=== PATIENT | male | born 1940 | race Caucasian/White ===

== ENCOUNTER 2018-05-06 10:54 | Emergency (ER) | payer OTHER, MEDICARE ==
[2018-05-06] MEDS ORDERED: FENTANYL CITR 100 MCG/2 ML ONE (12:23)
[2018-05-06] MEDS ORDERED: NA CHLORIDE 0.9% 1,000 ML ONE (12:23)
[2018-05-06 12:28] LABS: Absolute Lymphocytes (CBC) 0.5 K/uL (0.7-4.9); Absolute Monocytes 0.4 K/uL (0.1-1.3); Absolute Neutrophil 15.9 K/uL (1.8-8.0); Basophils % 0.3 % (0-1.3); Eosinophils % 0.3 % (0-4.4); Hematocrit 46.9 % (39.6-49.0); Lymphocytes % 2.9 % (15.3-44.8); MPV 8.9 fL (7.6-11.3); Monocytes % 2.5 % (3.3-12.3); RBC Red Blood Cell Count 5.07 M/uL (4.33-5.43)
[2018-05-06 12:38] LABS: Albumin 2.8 g/dL (3.4-5.0); Bilirubin Direct 0.6 mg/dL (0-0.2); Bilirubin Total 1.3 mg/dL (0.2-1.0); Protein, Total 7.6 g/dL (6.4-8.2)
[2018-05-06 12:39] LABS: Potassium 2.9 mmol/L (3.5-5.1)
[2018-05-06 12:52] LABS: Platelet Estimate ADEQ
[2018-05-06 12:53] LABS: Blood Morphology Comment NOT SEEN (NOT SEEN)
--- NOTE | 2018-05-06 12:57 | RAD REPORT ---
EXAM DESCRIPTION: CT - Stone Protocol - 05/06/2018 12:23 pm CLINICAL HISTORY: Abdominal pain. Hematuria COMPARISON: None. TECHNIQUE: Computed axial tomography of the abdomen pelvis was obtained without oral or IV contrast. Lack of IV and oral contrast limits evaluation of solid organs, bowel, and vessels. Coronal reformat joe images were obtained and reviewed. All CT scans are performed using dose optimization technique as appropriate and may include automated exposure control or mA/KV adjustment according to patient size. FINDINGS: A renal calculus is not seen. An ureteral calculus is not noted. A bladder calculus is not present. Several low-density left renal masses are nonspecific without IV contrast. It may represent cysts. The bladder wall is thickened. Arterial calcifications are present. An aorto bi femoral graft has been placed Small hepatic cysts suspected Spleen, pancreas and adrenals appear grossly normal There is no evidence of diverticulitis. The appendix appears normal Postsurgical changes of a prostatectomy with lymph node dissection. Small inguinal hernias contain fat. Postsurgical changes involve the lumbar spine. A neurostimulator device in place IMPRESSION: Negative for a genitourinary calculus Bladder wall thickening may indicate cystitis
[2018-05-06] MEDS ORDERED: POTASSIUM 25 MEQ EFFERV TAB ONE (14:31)
[2018-05-06] MEDS ORDERED: CEFTRIAXONE/SWI 1gm 1 GM/10 ML SYR ONE (14:31)
[2018-05-06 15:49] LABS: Urine Bacteria >50 /HPF (NONE SEEN); Urine Culture Reflex Order REFLEXED; Urine RBC <5 /HPF (NONE SEEN)
--- NOTE | 2018-05-06 16:05 | ER ---
Nurse's Notes [facility] Name: Ketan White Age: 77 yrs Sex: Male : 1940 Arrival Date: 05/06/2018 Time: 10:57 Bed 4 Private MD: None, None Diagnosis: Acute tubulo-interstitial nephritis Presentation: 05/06 11:15 Presenting complaint: Patient states: I am having severe lower back pain for one week la1 and started with chills and fever on one week ago as well. Pt denies urinary sx. I also was having blood in my urine one week ago but it has stopped. Transition of care: patient was not received from another setting of care. Onset of symptoms was May 06, 2018. Risk Assessment: Do you want to hurt yourself or someone else? Patient reports no desire to harm self or others. Initial Sepsis Screen: Does the patient meet any 2 criteria? No. Patient's initial sepsis screen is negative. Does the patient have a suspected source of infection? No. Patient's initial sepsis screen is negative. Care prior to arrival: None. 11:15 Method Of Arrival: Ambulatory la1 11:15 Acuity: ALICJA 3 la1 Historical: - Allergies: 11:14 NKDA; la1 - PMHx: 11:14 Hypertension; Hypothyroidism; Prostate Cancer; AAA (repaired 2013); CABG; la1 - Immunization history:: Adult Immunizations up to date. - Social history:: Smoking status: Patient uses tobacco products, smokes one-half pack cigarettes per day. - Ebola Screening: : No symptoms or risks identified at this time. Screenin:38 Abuse screen: Denies threats or abuse. Denies injuries from another. Nutritional ph screening: No deficits noted. Tuberculosis screening: No symptoms or risk factors identified. Fall Risk None identified. Assessment: 11:45 General: Appears in no apparent distress. comfortable, slender, well groomed, Behavior ph is calm, cooperative, appropriate for age, Reports chills for >3 days. Pain: Complains of pain in low back area Pain does not radiate. Pain currently is 3 out of 10 on a pain scale. Pain began approx 1 week ago. Neuro: Level of Consciousness is awake, alert, obeys commands, Oriented to person, place, time, situation. Cardiovascular: Capillary refill < 3 seconds in bilateral fingers Patient's skin is warm and dry. Respiratory: Airway is patent Respiratory effort is even, unlabored. GI: Abdomen is round non-distended, Bowel sounds present X 4 quads. Abd is soft and non tender X 4 quads. Reports nausea, Patient currently denies abdominal pain, diarrhea, vomiting. : Reports pain in bilateral in lower back also reports having an episode of hematuria approx 1 week ago Denies burning with urination, discharge, inability to void. Derm: Skin is intact, Skin is pink, warm \T\ dry. Musculoskeletal: Circulation, motion, and sensation intact. Range of motion: intact in all extremities. 13:00 Reassessment: Patient appears in no apparent distress at this time. Patient and/or ph family updated on plan of care and expected duration. Pain level reassessed. Patient is alert, oriented x 3, equal unlabored respirations, skin warm/dry/pink. Pt resting quietly, awaiting lab and radiology results. 14:35 Reassessment: Patient appears in no apparent distress at this time. Patient and/or ph family updated on plan of care and expected duration. Pain level reassessed. Patient is alert, oriented x 3, equal unlabored respirations, skin warm/dry/pink. Patient denies pain at this time. 15:45 Reassessment: Patient appears in no apparent distress at this time. Patient and/or ph family updated on plan of care and expected duration. Pain level reassessed. Patient is alert, oriented x 3, equal unlabored respirations, skin warm/dry/pink. Pt resting quietly, awaiting urine results, family at bedside Patient denies pain at this time. Patient states feeling better. Patient states symptoms have improved. Vital Signs: 11:16 Pulse 92; Resp 18; Temp 98.6(TE); Pulse Ox 98% on R/A; Weight 81.65 kg; Height 5 ft. 8 la1 in. (172.72 cm); 11:18 BP 126 / 71; la1 12:39 BP 112 / 65; Pulse 65; Resp 18; Pulse Ox 95% on R/A; ph 14:12 BP 114 / 67; Pulse 59; Resp 18; Pulse Ox 98% on R/A; ph 14:20 BP 137 / 58; Pulse 58; Resp 18; Pulse Ox 98% on R/A; ph 15:30 BP 141 / 68; Pulse 65; Resp 18; Pulse Ox 98% on R/A; ph 16:20 BP 122 / 64; Pulse 61; Resp 18; Temp 98.2; Pulse Ox 98% on R/A; ph 11:16 Body Mass Index 27.37 (81.65 kg, 172.72 cm) la1 ED Course: 10:57 Patient arrived in ED. dl4 10:57 None, None is Private Physician. dl4 11:15 Triage completed. la1 11:16 Arm band placed on left wrist. la1 11:21 Arvin Logan MD is Attending Physician. gs 11:21 Iliana Jackson, ILEANA is Primary Nurse. ph 12:09 Inserted saline lock: 20 gauge in left antecubital area, using aseptic technique. ph 12:[address] kw1 12:23 CT Stone Protocol In Process Unspecified. EDMS 12:39 Patient has correct armband on for positive identification. Placed in gown. Bed in low ph position. Call light in reach. Side rails up X 1. environmental monitoring technician on. Pulse ox on. NIBP on. Warm blanket given. 14:38 No provider procedures requiring assistance completed. ph 16:25 IV discontinued, intact, bleeding controlled, No redness/swelling at site. Pressure ph dressing applied. Administered Medications: 12:15 Drug: NS 0.9% 1000 ml Route: IV; Rate: 1 bolus; Site: left antecubital; ph 13:15 Follow up: IV Status: Completed infusion ph 12:15 Drug: fentaNYL (PF) 50 mcg Route: IVP; Site: left antecubital; ph 14:35 Follow up: Response: No adverse reaction; Pain is decreased ph 14:35 Drug: Rocephin - (cefTRIAXone) 1 grams Route: IVPB; Infused Over: 30 mins; Site: left ph antecubital; 15:01 Follow up: Response: No adverse reaction; IV Status: Completed infusion ph 14:35 Drug: Potassium Effervescent Tablet 50 mEq Route: PO; ph 15:01 Follow up: Response: No adverse reaction ph Outcome: 16:05 Discharge ordered by . gs 16:25 Discharged to home via wheelchair, with family. ph 16:25 Condition: improved 16:25 Discharge instructions given to patient, Instructed on discharge instructions, follow up and referral plans. medication usage, Demonstrated understanding of instructions, follow-up care, medications, Prescriptions given X 2. 16:25 Patient left the ED. ph Signatures: Dispatcher [employer] EDMS Camron Christina RN RN la1 Iliana Jackson RN RN ph Janusz Cohen RN RN hj Starr, Gregory, MD MD Kim Cortez kw1 Ketan Winter dl4 Corrections: (The following items were deleted from the chart) 11:16 11:15 Presenting complaint: Patient states: I am having severe lower back pain for one la1 week and started with chills and fever on one week ago as well. Pt denies urinary sx. la1 12:53 12:39 BP 160 / 82; Pulse 84bpm; Resp 22bpm; Pulse Ox 97% RA; ph ph 17:13 16:54 Patient left the ED. hj ph
--- NOTE | 2018-05-06 16:06 | EDPHYS ---
Physician Documentation [facility] Name: Ketan White Age: 77 yrs Sex: Male : 1940 Arrival Date: 05/06/2018 Time: 10:57 Bed 4 Private MD: None, None ED Physician Arvin Logan HPI: 05/06 16:27 This 77 yrs old Male presents to ER via Ambulatory with complaints of Low gs Back Pain, Urinary Problem. 16:27 The patient presents with pain that is acute. The symptoms are located in the low back. gs The pain does not radiate. Onset: The symptoms/episode began/occurred acutely, 1 week(s) ago. Modifying factors: The patient symptoms are alleviated by nothing, the patient symptoms are aggravated by any movement. Associated signs and symptoms: Pertinent positives: hematuria, Pertinent negatives: chest pain, constipation, incontinence, urinary retention, weakness. Severity of symptoms: At their worst the symptoms were moderate, in the emergency department the symptoms are unchanged. The patient has not experienced similar symptoms in the past. Historical: - Allergies: 11:14 NKDA; la1 - PMHx: 11:14 Hypertension; Hypothyroidism; Prostate Cancer; AAA (repaired 2013); CABG; la1 - Immunization history:: Adult Immunizations up to date. - Social history:: Smoking status: Patient uses tobacco products, smokes one-half pack cigarettes per day. - Ebola Screening: : No symptoms or risks identified at this time. ROS: 16:27 All other systems are negative. gs Exam: 16:27 Head/Face: Normocephalic, atraumatic. Eyes: Pupils equal round and reactive to light, gs extra-ocular motions intact. Lids and lashes normal. Conjunctiva and sclera are non-icteric and not injected. Cornea within normal limits. Periorbital areas with no swelling, redness, or edema. ENT: Nares patent. No nasal discharge, no septal abnormalities noted. Tympanic membranes are normal and external auditory canals are clear. Oropharynx with no redness, swelling, or masses, exudates, or evidence of obstruction, uvula midline. Mucous membranes moist. Neck: Trachea midline, no thyromegaly or masses palpated, and no cervical lymphadenopathy. Supple, full range of motion without nuchal rigidity, or vertebral point tenderness. No Meningismus. Chest/axilla: Normal chest wall appearance and motion. Nontender with no deformity. No lesions are appreciated. Cardiovascular: Regular rate and rhythm with a normal S1 and S2. No gallops, murmurs, or rubs. Normal PMI, no JVD. No pulse deficits. Respiratory: Lungs have equal breath sounds bilaterally, clear to auscultation and percussion. No rales, rhonchi or wheezes noted. No increased work of breathing, no retractions or nasal flaring. Abdomen/GI: Soft, non-tender, with normal bowel sounds. No distension or tympany. No guarding or rebound. No evidence of tenderness throughout. Skin: Warm, dry with normal turgor. Normal color with no rashes, no lesions, and no evidence of cellulitis. MS/ Extremity: Pulses equal, no cyanosis. Neurovascular intact. Full, normal range of motion. Neuro: Awake and alert, GCS 15, oriented to person, place, time, and situation. Cranial nerves II-XII grossly intact. Motor strength 5/5 in all extremities. Sensory grossly intact. Cerebellar exam normal. Normal gait. 16:27 Constitutional: The patient appears alert, awake. 16:27 Back: pain, that is mild, of the lumbar area, CVA tenderness, that is moderate, is noted on the left. Vital Signs: 11:16 Pulse 92; Resp 18; Temp 98.6(TE); Pulse Ox 98% on R/A; Weight 81.65 kg; Height 5 ft. 8 la1 in. (172.72 cm); 11:18 BP 126 / 71; la1 12:39 BP 112 / 65; Pulse 65; Resp 18; Pulse Ox 95% on R/A; ph 14:12 BP 114 / 67; Pulse 59; Resp 18; Pulse Ox 98% on R/A; ph 14:20 BP 137 / 58; Pulse 58; Resp 18; Pulse Ox 98% on R/A; ph 15:30 BP 141 / 68; Pulse 65; Resp 18; Pulse Ox 98% on R/A; ph 16:20 BP 122 / 64; Pulse 61; Resp 18; Temp 98.2; Pulse Ox 98% on R/A; ph 11:16 Body Mass Index 27.37 (81.65 kg, 172.72 cm) la1 MDM: 12:02 Patient medically screened. gs 16:27 Differential diagnosis: arthritis, strain, UTI. Data reviewed: vital signs, nurses gs notes, lab test result(s), radiologic studies. Counseling: I had a detailed discussion with the patient and/or guardian regarding: the historical points, exam findings, and any diagnostic results supporting the discharge/admit diagnosis, lab results, radiology results. Response to treatment: the patient's symptoms have markedly improved after treatment, and as a result, I will discharge patient. 05/06 12:03 Order name: Basic Metabolic Panel; Complete Time: 13:28 05/06 12:03 Order name: CBC with Diff; Complete Time: 13:28 05/06 12:03 Order name: Hepatic Function; Complete Time: 13:28 05/06 12:03 Order name: Lipase; Complete Time: 13:28 05/06 12:03 Order name: Urine Microscopic Only; Complete Time: 16:02 05/06 12:52 Order name: Manual Differential; Complete Time: 13:28 [facility] 05/06 12:03 Order name: CT Stone Protocol; Complete Time: 13:28 05/06 13:31 Order name: Blood Culture* 05/06 14:07 Order name: Magnesium; Complete Time: 15:17 05/06 15:02 Order name: Urine Dipstick--Ancillary (enter results) pa 05/06 15:51 Order name: Urine Culture [facility] 05/06 12:03 Order name: IV Saline Lock; Complete Time: 12:09 05/06 12:03 Order name: Labs collected and sent; Complete Time: 12:09 05/06 12:03 Order name: Urine Dipstick-Ancillary (obtain specimen); Complete Time: 15:01 Administered Medications: 12:15 Drug: NS 0.9% 1000 ml Route: IV; Rate: 1 bolus; Site: left antecubital; ph 13:15 Follow up: IV Status: Completed infusion ph 12:15 Drug: fentaNYL (PF) 50 mcg Route: IVP; Site: left antecubital; ph 14:35 Follow up: Response: No adverse reaction; Pain is decreased ph 14:35 Drug: Rocephin - (cefTRIAXone) 1 grams Route: IVPB; Infused Over: 30 mins; Site: left ph antecubital; 15:01 Follow up: Response: No adverse reaction; IV Status: Completed infusion ph 14:35 Drug: Potassium Effervescent Tablet 50 mEq Route: PO; ph 15:01 Follow up: Response: No adverse reaction ph Disposition: 05/06/18 16:05 Discharged to Home. Impression: Acute tubulo-interstitial nephritis. - Condition is Stable. - Discharge Instructions: Pyelonephritis, Adult. - Prescriptions for Keflex 500 mg Oral Capsule - take 1 capsule by ORAL route 3 times per day for 10 days; 30 capsule. Tylenol- Codeine #4 300-60 mg Oral Tablet - take 1 tablet by ORAL route every 8 hours As needed; 10 tablet. - Medication Reconciliation Form, Thank You Letter, Antibiotic Education, Prescription Opioid Use form. - Follow up: Private Physician; When: 2 - 3 days; Reason: Re-evaluation by your physician. Signatures: Dispatcher [employer] EDMS Camron Christina RN RN laIliana Salinas RN RN ph Janusz Cohen RN RN Arvin Villa MD MD Corrections: (The following items were deleted from the chart) 16:54 16:05 05/06/2018 16:05 Discharged to Home. Impression: Acute tubulo-interstitial hj nephritis. Condition is Stable. Forms are Medication Reconciliation Form, Thank You Letter, Antibiotic Education, Prescription Opioid Use. Follow up: Private Physician; When: 2 - 3 days; Reason: Re-evaluation by your physician. gs
[2018-05-06 16:36] LABS: Urine Blood TRACE (NEG); Urine Glucose NEGATIVE (NEG); Urine Protein NEGATIVE (NEG); Urine Specific Gravity 1.015 (1.005-1.030)
== END 2018-05-06 16:54 | disposition home or self-care (01) ==
LOC: ER 10:54
DX: N10 Acute pyelonephritis (principal); I10 Essential (primary) hypertension; F17.210 Nicotine dependence, cigarettes, uncomplicated; Z95.1 Presence of aortocoronary bypass graft; Z85.46 Personal history of malignant neoplasm of prostate
CPT/HCPCS: 36415; 74176; 76377; 80048; 80076; 83690; 83735; 85025; 87040 ×2; 87086; 87088; J0696; J3010; J7030; 81003; 81015; 87077; 87186; 87205; 96361; 96365; 96375; 99285

== ENCOUNTER 2019-04-14 09:35 | Emergency (ER) | payer OTHER, MEDICARE ==
[2019-04-14 10:53] LABS: Absolute Lymphocytes (CBC) 0.7 K/uL (0.7-4.9); Basophils % 0.3 % (0-1.3); Hematocrit 43.5 % (39.6-49.0); Lymphocytes % 5.8 % (15.3-44.8); MPV 7.8 fL (7.6-11.3); RBC Red Blood Cell Count 4.43 M/uL (4.33-5.43)
[2019-04-14 11:06] LABS: Urine Blood 2+ (NEG); Urine Glucose NEGATIVE (NEG); Urine Protein 2+ (NEG); Urine pH 5.5 (5.0-7.0)
[2019-04-14 11:07] LABS: Potassium 3.8 mmol/L (3.5-5.1)
[2019-04-14] MEDS ORDERED: CEFTRIAXONE/SWI 1gm 1 GM/10 ML SYR ONE (11:18)
--- NOTE | 2019-04-14 11:28 | ER ---
Nurse's Notes [facility] Name: Ketan White Age: 78 yrs Sex: Male : 1940 Arrival Date: 04/14/2019 Time: 09:37 Bed 24 Private MD: Diagnosis: Urinary tract infection, site not specified Presentation: 04/14 10:03 Presenting complaint: Patient states: Flank pain, chills, dysuria and urinary frequency aj1 since Monday night. Transition of care: patient was not received from another setting of care. Onset of symptoms was March 2019. Risk Assessment: Do you want to hurt yourself or someone else? Patient reports no desire to harm self or others. Initial Sepsis Screen: Does the patient meet any 2 criteria? No. Patient's initial sepsis screen is negative. Does the patient have a suspected source of infection? Yes: Dysuria/Frequency/Urgency/UTI. Care prior to arrival: None. 10:03 Method Of Arrival: Wheelchair aj1 10:03 Acuity: ALICJA 3 aj1 Triage Assessment: 10:07 General: Appears in no apparent distress. uncomfortable, Behavior is calm, cooperative, aj1 appropriate for age. Pain: Pain currently is 7 out of 10 on a pain scale. Historical: - Allergies: 10:07 NKDA; aj1 - Home Meds: 10:07 amlodipine 5 mg tab 1 tab once daily [Active]; aspirin 81 mg Oral TbEC 1 tab once daily aj1 [Active]; clopidogrel 75 mg Oral tab 1 tab once daily [Active]; CoQ-10 Oral daily [Active]; levothyroxine 50 mcg tab 1 tab once daily [Active]; lisinopril 40 mg Oral tab 1 tab once daily [Active]; Vitamin D Oral daily [Active]; Java-3 Oral daily [Active]; - PMHx: 10:07 AAA (repaired 2013); CABG; Hypertension; Hypothyroidism; Prostate Cancer; aj1 - Immunization history:: Flu vaccine is up to date. - Coronavirus screen:: The patient has NOT traveled to [place], [place], or [place] in the past 14 days. - Social history:: Smoking status: Patient reports the use of cigarette tobacco products, smokes one-half pack cigarettes per day. - Ebola Screening: : Patient denies travel to an Ebola-affected area in the 21 days before illness onset. Screenin:08 Abuse screen: Denies threats or abuse. Denies injuries from another. Nutritional aj1 screening: No deficits noted. Tuberculosis screening: No symptoms or risk factors identified. 12:14 Fall Risk None identified. aj1 Assessment: 10:08 General: Appears in no apparent distress. uncomfortable, Behavior is calm, cooperative, aj1 appropriate for age. Pain: Complains of pain in back Pain radiates to abdomen Pain currently is 7 out of 10 on a pain scale. at worst was 9 out of 10 on a pain scale. Neuro: Level of Consciousness is awake, alert, obeys commands, Oriented to person, place, time, situation. Cardiovascular: Patient's skin is warm and dry. Respiratory: Airway is patent Respiratory effort is even, unlabored, Respiratory pattern is regular, symmetrical. GI: Abdomen is non-distended. : Reports burning with urination, urgency, urinary frequency. EENT: No signs and/or symptoms were reported regarding the EENT system. Derm: No signs and/or symptoms reported regarding the dermatologic system. Skin is pink, warm \T\ dry. normal. Musculoskeletal: No signs and/or symptoms reported regarding the musculoskeletal system. Circulation, motion, and sensation intact. 11:12 Reassessment: Patient appears in no apparent distress at this time. No changes from aj1 previously documented assessment. Patient and/or family updated on plan of care and expected duration. Pain level reassessed. Patient is alert, oriented x 3, equal unlabored respirations, skin warm/dry/pink. 12:12 Reassessment: Patient appears in no apparent distress at this time. No changes from aj1 previously documented assessment. Patient and/or family updated on plan of care and expected duration. Pain level reassessed. Patient is alert, oriented x 3, equal unlabored respirations, skin warm/dry/pink. Vital Signs: 10:07 BP 128 / 77; Pulse 79; Resp 18; Temp 99.8; Pulse Ox 97% on R/A; Weight 79.38 kg (R); aj1 Height 5 ft. 8 in. (172.72 cm) (R); Pain 7/10; 11:12 BP 110 / 54; Pulse 70; Resp 18; Pulse Ox 97% on R/A; aj1 12:13 BP 118 / 54; Pulse 72; Resp 18; Pulse Ox 97% on R/A; aj1 10:07 Body Mass Index 26.61 (79.38 kg, 172.72 cm) aj1 ED Course: 09:37 Patient arrived in ED. as 09:41 Aren Caputo MD is Attending Physician. kdr 10:03 Karen Salmon RN is Primary Nurse. aj1 10:05 Triage completed. aj1 10:07 Arm band placed on Patient placed in an exam room. aj1 10:08 CT completed. Patient tolerated procedure well. Patient moved back from CT. mw3 10:08 Patient has correct armband on for positive identification. Bed in low position. Call aj light in reach. 10:08 No provider procedures requiring assistance completed. aj1 10:50 Initial lab(s) drawn, by me, sent to lab. Urine collected: clean catch specimen, jb1 cloudy, ananya colored. Inserted saline lock: 22 gauge in right antecubital area, using aseptic technique. Blood collected. 12:13 IV discontinued, intact, bleeding controlled, No redness/swelling at site. Pressure aj1 dressing applied. Administered Medications: 11:18 Drug: Rocephin - (cefTRIAXone) 1 grams Route: IVPB; Infused Over: 30 mins; Site: right aj1 antecubital; Outcome: 11:27 Discharge ordered by . kdr 12:14 Discharged to home via wheelchair, with family. aj1 12:14 Condition: good 12:14 Discharge instructions given to patient, Instructed on discharge instructions, follow up and referral plans. medication usage, Demonstrated understanding of instructions, follow-up care, medications, Prescriptions given X 2. 12:15 Patient left the ED. aj1 Addendum: 04/18/2019 07:20 Addendum: Culture Results: Positive urine culture. No further action required. Bacteria e b sensitive to prescribed antibiotic. Signatures: Tej Mahmood jb1 Karen Salmon, ILEANA RN aj1 Aren Caputo MD MD kdr Martinez, Amelia as Botello, Elizabeth eb Willis, Michelle mw3
--- NOTE | 2019-04-14 11:28 | EDPHYS ---
Physician Documentation [facility] Name: Ketan White Age: 78 yrs Sex: Male : 1940 Arrival Date: 04/14/2019 Time: 09:37 Bed 24 Private MD: ED Physician Aren Caputo HPI: 04/14 11:29 This 78 yrs old Male presents to ER via Wheelchair with complaints of Flank kdr Pain. 11:29 The patient complains of pain in the left mid back. The pain does not radiate. Onset: kdr The symptoms/episode began/occurred gradually, Monday night. Modifying factors: The symptoms are alleviated by nothing. the symptoms are aggravated by nothing. Associated signs and symptoms: Pertinent positives: fever, hematuria, nausea, subjective fever. Severity of pain: At its worst the pain was mild in the emergency department the pain is unchanged. The patient has experienced similar episodes in the past, with the last episode occurring 2 month(s) ago, today's symptoms are similar. The patient has not recently seen a physician. The patient states that he is having left flank pain and foul smelling urine with urgency and frequency since Monday. Historical: - Allergies: 10:07 NKDA; aj1 - Home Meds: 10:07 amlodipine 5 mg tab 1 tab once daily [Active]; aspirin 81 mg Oral TbEC 1 tab once daily aj1 [Active]; clopidogrel 75 mg Oral tab 1 tab once daily [Active]; CoQ-10 Oral daily [Active]; levothyroxine 50 mcg tab 1 tab once daily [Active]; lisinopril 40 mg Oral tab 1 tab once daily [Active]; Vitamin D Oral daily [Active]; Hye-3 Oral daily [Active]; - PMHx: 10:07 AAA (repaired 2013); CABG; Hypertension; Hypothyroidism; Prostate Cancer; aj1 - Immunization history:: Flu vaccine is up to date. - Coronavirus screen:: The patient has NOT traveled to [place], [place], or [place] in the past 14 days. - Social history:: Smoking status: Patient reports the use of cigarette tobacco products, smokes one-half pack cigarettes per day. - Ebola Screening: : Patient denies travel to an Ebola-affected area in the 21 days before illness onset. ROS: 11:29 Constitutional: Negative for objective fever, chills, and weight loss, Eyes: Negative kdr for injury, pain, redness, and discharge, ENT: Negative for injury, pain, and discharge, Neck: Negative for injury, pain, and swelling, Cardiovascular: Negative for chest pain, palpitations, and edema, Respiratory: Negative for shortness of breath, cough, wheezing, and pleuritic chest pain, Abdomen/GI: Negative for abdominal pain, nausea, vomiting, diarrhea, and constipation, MS/Extremity: Negative for injury and deformity, Skin: Negative for injury, rash, and discoloration, Neuro: Negative for headache, weakness, numbness, tingling, and seizure activity. Psych: Negative for depression, anxiety, suicide ideation, homicidal ideation, and hallucinations, Allergy/Immunology: Negative for hives, rash, and allergies, Endocrine: Negative for neck swelling, polydipsia, polyuria, polyphagia, and marked weight changes, Hematologic/Lymphatic: Negative for swollen nodes, abnormal bleeding, and unusual bruising. 11:29 Back: Positive for pain at rest, flank pain, on the left, of the left mid back, Negative for decreased range of motion. 11:29 : Positive for urinary symptoms, urinary frequency, small amounts, hematuria, foul smelling urine. Exam: 11:29 Constitutional: This is a well developed, well nourished patient who is awake, alert, kdr and in no acute distress. Head/Face: Normocephalic, atraumatic. Eyes: Pupils equal round and reactive to light, extra-ocular motions intact. Lids and lashes normal. Conjunctiva and sclera are non-icteric and not injected. Cornea within normal limits. Periorbital areas with no swelling, redness, or edema. Neck: Trachea midline, no thyromegaly or masses palpated, and no cervical lymphadenopathy. Supple, full range of motion without nuchal rigidity, or vertebral point tenderness. No Meningismus. Chest/axilla: Normal chest wall appearance and motion. Nontender with no deformity. No lesions are appreciated. Cardiovascular: Regular rate and rhythm with a normal S1 and S2. No gallops, murmurs, or rubs. Normal PMI, no JVD. No pulse deficits. Respiratory: Lungs have equal breath sounds bilaterally, clear to auscultation and percussion. No rales, rhonchi or wheezes noted. No increased work of breathing, no retractions or nasal flaring. Abdomen/GI: Soft, non-tender, with normal bowel sounds. No distension or tympany. No guarding or rebound. No evidence of tenderness throughout. Back: No spinal tenderness. No costovertebral tenderness. Full range of motion. Skin: Warm, dry with normal turgor. Normal color with no rashes, no lesions, and no evidence of cellulitis. MS/ Extremity: Pulses equal, no cyanosis. Neurovascular intact. Full, normal range of motion. Neuro: Awake and alert, GCS 15, oriented to person, place, time, and situation. Cranial nerves II-XII grossly intact. Motor strength 5/5 in all extremities. Sensory grossly intact. Cerebellar exam normal. Normal gait. Psych: Awake, alert, with orientation to person, place and time. Behavior, mood, and affect are within normal limits. Vital Signs: 10:07 BP 128 / 77; Pulse 79; Resp 18; Temp 99.8; Pulse Ox 97% on R/A; Weight 79.38 kg (R); aj1 Height 5 ft. 8 in. (172.72 cm) (R); Pain 7/10; 11:12 BP 110 / 54; Pulse 70; Resp 18; Pulse Ox 97% on R/A; aj1 12:13 BP 118 / 54; Pulse 72; Resp 18; Pulse Ox 97% on R/A; aj1 10:07 Body Mass Index 26.61 (79.38 kg, 172.72 cm) [facility] MDM: 11:27 Patient medically screened. [facility] 11:29 Data reviewed: vital signs, nurses notes, lab test result(s), radiologic studies. [facility] Counseling: I had a detailed discussion with the patient and/or guardian regarding: the historical points, exam findings, and any diagnostic results supporting the discharge/admit diagnosis, lab results, radiology results, the need for outpatient follow up. 04/14 10:25 Order name: Urine Culture [facility] 04/14 10:27 Order name: CBC with Diff; Complete Time: 11:20 [facility] 04/14 10:25 Order name: Urine Dipstick-Ancillary (obtain specimen); Complete Time: 10:48 [facility] 04/14 10:27 Order name: Chem 7; Complete Time: 11:20 [facility] 04/14 10:52 Order name: Urine Dipstick--Ancillary (enter results); Complete Time: 11:20 ms Administered Medications: 11:18 Drug: Rocephin - (cefTRIAXone) 1 grams Route: IVPB; Infused Over: 30 mins; Site: right aj1 antecubital; Disposition: 04/14/19 11:27 Discharged to Home. Impression: Urinary tract infection, site not specified. - Condition is Stable. - Discharge Instructions: Urinary Tract Infection, Adult, [id number]. - Prescriptions for Bactrim DS 800- 160 mg Oral Tablet - take 1 tablet by ORAL route every 12 hours for 10 days; 20 tablet. Tramadol 50 mg Oral Tablet - take 1 tablet by ORAL route every 8 hours as needed; 12 tablet. - Medication Reconciliation Form, Thank You Letter, Antibiotic Education form. - Follow up: Private Physician; When: 2 - 3 days; Reason: If symptoms return, Further diagnostic work-up, Recheck today's complaints, Continuance of care, Re-evaluation by your physician. - Problem is new. - Symptoms have improved. Signatures: Dispatcher [employer] EDKaren Souza RN RN aj1 Aren Caputo MD MD [facility] Corrections: (The following items were deleted from the chart) 12:15 11:27 04/14/2019 11:27 Discharged to Home. Impression: Urinary tract infection, site aj1 not specified. Condition is Stable. Forms are Medication Reconciliation Form, Thank You Letter, Antibiotic Education, Prescription Opioid Use. Follow up: Private Physician; When: 2 - 3 days; Reason: If symptoms return, Further diagnostic work-up, Recheck today's complaints, Continuance of care, Re-evaluation by your physician. Problem is new. Symptoms have improved. kdr
[2019-04-14 12:22] VITALS: TEMP 99.8; O2SAT 97
[2019-04-14 12:25] VITALS: BP 118/54
== END 2019-04-14 12:15 | disposition home or self-care (01) ==
LOC: ER 09:35
DX: N39.0 Urinary tract infection, site not specified (principal); E03.9 Hypothyroidism, unspecified; Z85.46 Personal history of malignant neoplasm of prostate; Z95.1 Presence of aortocoronary bypass graft; I10 Essential (primary) hypertension
CPT/HCPCS: 87088; 85025; 87086; 80048; 36415; 87077; 87186; 81003; 96374; 99284; J0696

== ENCOUNTER 2019-07-05 18:13 | Emergency (ER) | payer OTHER, MEDICARE ==
--- NOTE | 2019-07-05 19:16 | RAD REPORT ---
EXAM DESCRIPTION: CT - Stone Protocol - 07/05/2019 7:01 pm CLINICAL HISTORY: Abdominal pain. COMPARISON: 2018 TECHNIQUE: Computed axial tomography of the abdomen pelvis was obtained without oral or IV contrast. Lack of IV and oral contrast limits evaluation of solid organs, bowel, and vessels. Coronal reformat joe images were obtained and reviewed. All CT scans are performed using dose optimization technique as appropriate and may include automated exposure control or mA/KV adjustment according to patient size. FINDINGS: Chronic appearing interstitial opacities within the lungs. A 1 millimeter nonobstructing left renal calculus. No hydronephrosis small renal cysts suspected. . A n ureteral calculus is not noted. A bladder calculus is not present. Thickened bladder wall Arterial calcifications are present. An aorto bi femoral graft has been placed Small hepatic cysts Spleen, pancreas and adrenals appear grossly normal There is no evidence of diverticulitis. The appendix appears normal Postsurgical changes of a prostatectomy with lymph node dissection. Small inguinal hernias contain fat. Postsurgical changes involve the lumbar spine. neurostimulator device in place IMPRESSION: 1 millimeter nonobstructing left renal calculus Thickened bladder wall may indicate a cystitis
[2019-07-05] MEDS ORDERED: ACETAMINOPHEN 325 MG TABLET ONE (19:17)
[2019-07-05 19:18] LABS: Absolute Lymphocytes (CBC) 0.7 K/uL (0.7-4.9); Basophils % 0.7 % (0-1.3); Hematocrit 46.5 % (39.6-49.0); Lymphocytes % 6.2 % (15.3-44.8); MPV 7.8 fL (7.6-11.3); RBC Red Blood Cell Count 4.64 M/uL (4.33-5.43)
[2019-07-05] MEDS ORDERED: MORPHINE 2 MG/ML SYR ONE (19:18)
[2019-07-05] MEDS ORDERED: NA CHLORIDE 0.9% 500 ML ONE (19:18)
[2019-07-05 19:23] LABS: Albumin 3.2 g/dL (3.4-5.0); Bilirubin Direct 0.2 mg/dL (0-0.2); Bilirubin Total 0.7 mg/dL (0.2-1.0); Protein, Total 7.9 g/dL (6.4-8.2)
--- NOTE | 2019-07-05 20:45 | ER ---
Nurse's Notes [facility] Name: Ketan White Age: 78 yrs Sex: Male : 1940 Arrival Date: 07/05/2019 Time: 18:15 Bed 7 Private MD: Diagnosis: Urinary tract infection, site not specified Presentation: 07/04 18:21 Chief complaint: Patient states: I have a kidney infection, this is about the 3rd time ca1 this happened. It is the 2nd time this year. Reports low back pain, both sides but more on Left. Reports burning with urination, urinary frequency. Symptoms started 2-3 days ago. Denies cough. Coronavirus screen: Proceed with normal triage. Patient denies a cough. Patient denies shortness of breath or difficulty breathing. Patient reports a measured and/or subjective temperature greater than 100.4F. Patient denies travel on a cruise ship or to a country the [facility] currently lists as an affected area. Patient denies contact with known and/or suspected case of COVID-19. Ebola Screen: Patient negative for fever greater than or equal to 101.5 degrees Fahrenheit, and additional compatible Ebola Virus Disease symptoms Patient denies exposure to infectious person. Patient denies travel to an Ebola-affected area in the 21 days before illness onset. No symptoms or risks identified at this time. Initial Sepsis Screen: Does the patient meet any 2 criteria? No. Patient's initial sepsis screen is negative. Does the patient have a suspected source of infection? No. Patient's initial sepsis screen is negative. Risk Assessment: Do you want to hurt yourself or someone else? Patient reports no desire to harm self or others. Onset of symptoms was July 05, 2019. 18:21 Method Of Arrival: Wheelchair ca1 18:21 Acuity: ALICJA 3 ca1 Triage Assessment: 18:29 General: Appears in no apparent distress. comfortable, Behavior is cooperative, bp appropriate for age, anxious. Pain: Complains of pain in left flank. EENT: No deficits noted. Neuro: No deficits noted. Cardiovascular: No deficits noted. Respiratory: No deficits noted. GI: No signs and/or symptoms were reported involving the gastrointestinal system. : Reports burning with urination, pain in left flank(s). Derm: No deficits noted. Musculoskeletal: No deficits noted. Historical: - Allergies: 18:26 NKDA; ca1 - Home Meds: 18:26 amlodipine 5 mg tab 1 tab once daily [Active]; aspirin 81 mg Oral TbEC 1 tab once daily ca1 [Active]; clopidogrel 75 mg Oral tab 1 tab once daily [Active]; CoQ-10 Oral daily [Active]; levothyroxine 50 mcg tab 1 tab once daily [Active]; lisinopril 40 mg Oral tab 1 tab once daily [Active]; Holt-3 Oral daily [Active]; Vitamin D Oral daily [Active]; - PMHx: 18:26 AAA (repaired 2013); CABG; Hypertension; Hypothyroidism; Prostate Cancer; ca1 - Immunization history:: Adult Immunizations up to date, Pneumococcal vaccine is up to date, Flu vaccine is up to date. - Social history:: Smoking status: Patient reports the use of cigarette tobacco products, smokes one-half pack cigarettes per day. Screenin:30 Abuse screen: Denies threats or abuse. Denies injuries from another. Nutritional bp screening: No deficits noted. Tuberculosis screening: No symptoms or risk factors identified. Fall Risk None identified. Assessment: 18:30 General: SEE TRIAGE NOTE. bp 18:58 Reassessment: PT TO CT. bp 19:23 Reassessment: Patient is alert, oriented x 3, equal unlabored respirations, skin bb warm/dry/pink. IV site to R AC intact, patent, fluids infusing, pt returned from CT and awaiting results. 20:49 Reassessment: Patient is alert, oriented x 3, equal unlabored respirations, skin bb warm/dry/pink. awaiting results and disposition. 21:07 Reassessment: Patient is alert, oriented x 3, equal unlabored respirations, skin bb warm/dry/pink. pt verbalized understanding of and agrees to plan of care discharge instructions given pt assisted to exit via wheelchair accompanied by concrete technician son waiting in parking lot for transportation home. Vital Signs: 18:21 BP 137 / 68; Pulse 89; Resp 16 S; Temp 100.3(O); Pulse Ox 95% on R/A; Weight 79.38 kg; ca1 Height 5 ft. 8 in. (172.72 cm) (R); Pain 5/10; 19:24 BP 128 / 62; Pulse 72; Resp 16 S; Pulse Ox 96% on R/A; Pain 3/10; bb 20:48 BP 111 / 62; Pulse 65; Resp 20 S; Temp 98.5(O); Pulse Ox 97% on R/A; Pain 0/10; bb 18:21 Body Mass Index 26.61 (79.38 kg, 172.72 cm) ca1 ED Course: 18:15 Patient arrived in ED. ag5 18:18 hCuy Chen PA is PHCP. cp 18:18 Aren Caputo MD is Attending Physician. cp 18:25 Triage completed. ca1 18:26 Arm band placed on right wrist. ca1 18:28 Anil Tate, ILEANA is Primary Nurse. bp 18:30 Patient has correct armband on for positive identification. Bed in low position. Call bp light in reach. Side rails up X2. 18:41 Bladder scan completed. 0 ML. bp 18:58 Inserted saline lock: 20 gauge in right antecubital area, using aseptic technique. bp Blood collected. 19:01 CT Stone Protocol In Process Unspecified. EDMS 19:24 IV is patent, is intact, with fluids infusing freely. bb 20:40 Urine Microscopic Only Sent. ds4 20:48 Noel Ramirez MD is Attending Physician. cp 20:50 No provider procedures requiring assistance completed. bb 21:08 IV discontinued, intact, bleeding controlled, No redness/swelling at site. Pressure bb dressing applied. Administered Medications: 19:22 Drug: NS 0.9% 500 ml Route: IV; Rate: 500 ml/hr; Site: right antecubital; bb 19:55 Follow up: IV Status: Completed infusion; IV Intake: 500ml bb 19:22 Drug: Tylenol 650 mg Route: PO; bb 20:50 Follow up: Response: Temperature is decreased bb 19:22 Drug: morphine 2 mg {Note: RASS 0.} Route: IVP; Site: right antecubital; bb 19:55 Follow up: Response: Pain is decreased; RASS: Alert and Calm (0) bb 20:55 Drug: Rocephin 2 grams Route: IV; Rate: calculated rate; Site: right antecubital; bb 21:07 Follow up: IV Status: Completed infusion; IV Intake: 50ml bb Intake: 19:55 IV: 500ml; Total: 500ml. bb 21:07 IV: 50ml; Total: 550ml. bb Outcome: 20:44 Discharge ordered by . cp 21:08 Discharged to home via wheelchair, with family. bb 21:08 Condition: stable 21:08 Discharge instructions given to patient, Instructed on discharge instructions, follow up and referral plans. medication usage, Demonstrated understanding of instructions, follow-up care, medications, Prescriptions given X 1. 21:09 Patient left the ED. bb Signatures: Dispatcher [employer] EDMarie Bauer RN RN bb Eliud Lemus ds4 Chuy Chen PA PA cp Peltier, Brian, RN RN Kecia Slaughter RN RN [facility] Volodymyr Morton ag5
--- NOTE | 2019-07-05 20:45 | EDPHYS ---
Physician Documentation [facility] Name: Ketan White Age: 78 yrs Sex: Male : 1940 Arrival Date: 07/05/2019 Time: 18:15 Bed 7 Private MD: ED Physician Noel Ramirez HPI: 07/04 18:47 This 78 yrs old Male presents to ER via Wheelchair with complaints of Kidney cp Problem. 18:47 The patient presents with urinary symptoms, dysuria, urinary frequency. cp 18:47 Onset: The symptoms/episode began/occurred 3 day(s) ago. cp 18:47 Associated signs and symptoms: Pertinent positives: bilateral flank pain, Pertinent cp negatives: abdominal pain, diarrhea, fever, vomiting. Historical: - Allergies: 18:26 NKDA; ca1 - Home Meds: 18:26 amlodipine 5 mg tab 1 tab once daily [Active]; aspirin 81 mg Oral TbEC 1 tab once daily ca1 [Active]; clopidogrel 75 mg Oral tab 1 tab once daily [Active]; CoQ-10 Oral daily [Active]; levothyroxine 50 mcg tab 1 tab once daily [Active]; lisinopril 40 mg Oral tab 1 tab once daily [Active]; [place]-3 Oral daily [Active]; Vitamin D Oral daily [Active]; - PMHx: 18:26 AAA (repaired 2013); CABG; Hypertension; Hypothyroidism; Prostate Cancer; ca1 - Immunization history:: Adult Immunizations up to date, Pneumococcal vaccine is up to date, Flu vaccine is up to date. - Social history:: Smoking status: Patient reports the use of cigarette tobacco products, smokes one-half pack cigarettes per day. ROS: 19:00 Constitutional: Negative for body aches, chills, fever, poor PO intake. cp 19:00 Eyes: Negative for injury, pain, redness, and discharge. cp 19:00 Cardiovascular: Negative for chest pain. 19:00 Respiratory: Negative for cough, shortness of breath, wheezing. 19:00 Abdomen/GI: Negative for abdominal pain, nausea, vomiting, and diarrhea, constipation, black/tarry stool, rectal bleeding. 19:00 Back: Positive for flank pain, bilaterally. 19:00 : Positive for urinary frequency, burning with urination. 19:00 Neuro: Negative for altered mental status, headache, weakness. 19:00 All other systems are negative. Exam: 19:05 Constitutional: The patient appears in no acute distress, alert, awake, non-toxic, well cp developed, well nourished. 19:05 Head/Face: Normocephalic, atraumatic. cp 19:05 Eyes: Periorbital structures: appear normal, Conjunctiva: normal, no exudate, no injection, Sclera: no appreciated abnormality, Lids and lashes: appear normal, bilaterally. 19:05 ENT: External ear(s): are unremarkable, Nose: is normal, Mouth: Lips: moist, Oral mucosa: moist, Posterior pharynx: is normal, airway is patent. 19:05 Chest/axilla: Inspection: normal, Palpation: is normal, no crepitus, no tenderness. 19:05 Cardiovascular: Rate: normal, Rhythm: regular. 19:05 Respiratory: the patient does not display signs of respiratory distress, Respirations: normal, no use of accessory muscles, no retractions, labored breathing, is not present, Breath sounds: are clear throughout, no decreased breath sounds. 19:05 Abdomen/GI: Inspection: colostomy noted RLQ, Bowel sounds: active, all quadrants, Palpation: abdomen is soft and non-tender, in all quadrants. 19:05 Back: pain, that is moderate, of the mid back area, ROM is normal. 19:05 Neuro: Orientation: to person, place \T\ time. Mentation: is normal. Vital Signs: 18:21 BP 137 / 68; Pulse 89; Resp 16 S; Temp 100.3(O); Pulse Ox 95% on R/A; Weight 79.38 kg; ca1 Height 5 ft. 8 in. (172.72 cm) (R); Pain 5/10; 19:24 BP 128 / 62; Pulse 72; Resp 16 S; Pulse Ox 96% on R/A; Pain 3/10; bb 20:48 BP 111 / 62; Pulse 65; Resp 20 S; Temp 98.5(O); Pulse Ox 97% on R/A; Pain 0/10; bb 18:21 Body Mass Index 26.61 (79.38 kg, 172.72 cm) ca1 MDM: 18:28 Patient medically screened. cp 20:43 Data reviewed: vital signs, nurses notes, lab test result(s), radiologic studies, CT cp scan, and as a result, I will discharge patient. 20:43 Counseling: I had a detailed discussion with the patient and/or guardian regarding: the cp historical points, exam findings, and any diagnostic results supporting the discharge/admit diagnosis, lab results, radiology results, the need for outpatient follow up, a family practitioner, to return to the emergency department if symptoms worsen or persist or if there are any questions or concerns that arise at home. 07/04 18:44 Order name: Basic Metabolic Panel; Complete Time: 19:59 cp 07/04 19:59 Interpretation: Normal except: GLUC 119; BUN 21; CRE 1.70; GFR 39. cp 07/04 18:44 Order name: CBC with Diff; Complete Time: 19:59 cp 07/04 20:00 Interpretation: Normal except: WBC 12.1; MCV 100.1; RDW 15.7; LILLIANA% 81.7; LYM% 6.2; NEUT cp A 9.9; MNA 1.4. 07/04 18:44 Order name: Creatinine for Radiology; Complete Time: 19:59 cp 07/04 18:44 Order name: Hepatic Function; Complete Time: 19:59 cp 07/04 20:30 Interpretation: Normal except: ALB 3.2; GLOB 4.7; A/G 0.7. cp 07/04 18:44 Order name: Lipase; Complete Time: 19:59 cp 07/04 18:44 Order name: Urine Microscopic Only cp 07/04 18:44 Order name: Bladder Scanner; Complete Time: 18:59 cp 07/04 18:44 Order name: CT Stone Protocol; Complete Time: 19:21 cp 07/04 19:21 Interpretation: Report reviewed. cp 07/04 20:42 Order name: Urine Dipstick--Ancillary (enter results) ds4 07/04 21:00 Order name: Urine Culture EDMS 07/04 18:44 Order name: IV Saline Lock; Complete Time: 18:59 cp 07/04 18:44 Order name: Labs collected and sent; Complete Time: 18:59 cp 07/04 18:44 Order name: Urine Dipstick-Ancillary (obtain specimen); Complete Time: 20:40 cp 07/04 20:43 Order name: Vital Signs: please update to include temp; Complete Time: 20:50 cp Administered Medications: 19:22 Drug: NS 0.9% 500 ml Route: IV; Rate: 500 ml/hr; Site: right antecubital; bb 19:55 Follow up: IV Status: Completed infusion; IV Intake: 500ml bb : Drug: Tylenol 650 mg Route: PO; bb 20:50 Follow up: Response: Temperature is decreased bb 19: Drug: morphine 2 mg {Note: RASS 0.} Route: IVP; Site: right antecubital; bb 19:55 Follow up: Response: Pain is decreased; RASS: Alert and Calm (0) bb 20:55 Drug: Rocephin 2 grams Route: IV; Rate: calculated rate; Site: right antecubital; bb 21:07 Follow up: IV Status: Completed infusion; IV Intake: 50ml bb Disposition: 07/05 00:06 Co-signature as Attending Physician, Noel Ramirez MD I agree with the assessment and tw4 plan of care. Disposition: 07/05/19 20:44 Discharged to Home. Impression: Urinary tract infection, site not specified. - Condition is Stable. - Discharge Instructions: Urinary Tract Infection, Adult. - Prescriptions for cefpodoxime 200 mg Oral Tablet - take 1 tablet by ORAL route every 12 hours for 10 days with food; 20 tablet. - Medication Reconciliation Form, Thank You Letter, Antibiotic Education, Prescription Opioid Use form. - Follow up: Private Physician; When: 2 - 3 days; Reason: Recheck today's complaints. - Problem is new. - Symptoms have improved. Signatures: Dispatcher [employer] Marie Olivia RN RN bb Chuy Chen PA PA cp Wadley, Terrence, MD MD tw4 Kecia Laurent RN RN ca1 Corrections: (The following items were deleted from the chart) 07/04 20:00 19:59 Normal except: WBC 12.1; MCV 100.1; RDW 15.7; LILLIANA% 81.7; LYM% 6.2; NEUT A 9.9. cp cp 21:09 20:44 07/05/2019 20:44 Discharged to Home. Impression: Urinary tract infection, site bb not specified. Condition is Stable. Forms are Medication Reconciliation Form, Thank You Letter, Antibiotic Education, Prescription Opioid Use. Follow up: Private Physician; When: 2 - 3 days; Reason: Recheck today's complaints. Problem is new. Symptoms have improved. cp
[2019-07-05 20:59] LABS: Urine Bacteria LOADED /HPF (NONE SEEN); Urine Culture Reflex Order REFLEXED; Urine Mucus 1+ /HPF (NONE SEEN)
[2019-07-05] MEDS ORDERED: CEFTRIAXONE/SWI 1gm 2 GM/20 ML SYR ONE (21:01)
[2019-07-05] MEDS ORDERED: NA CHLORIDE 0.9% 50 ML IV ONE (21:02)
[2019-07-05 21:07] LABS: Urine Blood 2+ (NEG); Urine Glucose NEGATIVE (NEG); Urine Protein 3+ (NEG); Urine Specific Gravity 1.025 (1.005-1.030); Urine pH 6.5 (5.0-7.0)
[2019-07-05 21:27] VITALS: BP 111/62; TEMP 98.5; O2SAT 97
== END 2019-07-05 21:09 | disposition home or self-care (01) ==
LOC: ER 18:13
DX: N39.0 Urinary tract infection, site not specified (principal); I10 Essential (primary) hypertension; E03.9 Hypothyroidism, unspecified; F17.210 Nicotine dependence, cigarettes, uncomplicated; Z79.82 Long term (current) use of aspirin; Z85.46 Personal history of malignant neoplasm of prostate
CPT/HCPCS: 96361; 87088; 85025; 87086; 80048; 36415; 80076; 83690; 76377; 74176; 96375; 96374; 99284; J2270; J0696; J7040; 81003; 81015